=== PATIENT | male | born 1985 | race Asian ===

== ENCOUNTER 2017-03-22 03:28 | Emergency (ER) | payer OTHER ==
[~2017-03-22] VITALS: Ht 182.9 cm; Wt 77.1 kg
[2017-03-22 03:30] VITALS: BP_SYST 164
[2017-03-22 04:00] VITALS: BP_SYST 143
== END 2017-03-22 04:00 ==
LOC: SED 03:28
DX: Z02.89 Encounter for other administrative examinations (principal); V89.2XXA Person injured in unspecified motor-vehicle accident, traffic, initial encounter; Y93.89 Activity, other specified; Y92.89 Other specified places as the place of occurrence of the external cause; Y99.8 Other external cause status
CPT/HCPCS: 99283